=== PATIENT | female | born 1965 | race Caucasian/White ===

== ENCOUNTER → 2017-03-17 | Outpatient (CLI) | payer OTHER ==
--- NOTE | 2017-03-17 11:49 | RAD ---
INDICATION: RIGHT KNEE AND BACK PAIN. MUSCLE PROBLEMS. COMPARISON: None. IMPRESSION: Right knee: 2 views obtained. No definite acute fracture or dislocation. There is evidence of tricompartmental degenerative changes with osteophyte formation. There may also be some subchondral cyst formation. Overall the degenerative changes are moderate in severity.
--- NOTE | 2017-03-17 11:51 | RAD ---
INDICATION: RIGHT KNEE AND BACK PAIN. MUSCLE PROBLEMS. COMPARISON: None. IMPRESSION: Lumbar spine: 3 views obtained. No definite acute fracture or dislocation. Degenerative changes throughout the lumbar spine with osteophyte formation as well as facet hypertrophy.
== END | disposition home or self-care (01) ==
LOC: RAD 10:07
PROVIDERS: ATTEND Surgery
DX: M17.11 Unilateral primary osteoarthritis, right knee (principal); M25.78 Osteophyte, vertebrae
CPT/HCPCS: 72100; 73560